=== PATIENT | female | born 1940 | race Caucasian/White ===

== ENCOUNTER 2022-12-05 13:22 | Outpatient (CLI) | payer MEDICARE, BC | END 2022-12-05 23:59 | disposition home or self-care (01) | LOC: CARD DIAG 13:22 | PROVIDERS: ATTEND Nurse Practitioner Family | DX: I08.8 Other rheumatic multiple valve diseases (principal); I11.9 Hypertensive heart disease without heart failure; E78.5 Hyperlipidemia, unspecified | CPT/HCPCS: 93306 ==